=== PATIENT | male | born 1950 | race Caucasian/White ===

== ENCOUNTER 2016-07-19 08:32 | Outpatient (CLI) | payer MEDICARE, MEDICAID | END 2016-07-19 08:33 | disposition critical access hospital (66) | DX: I46.9 Cardiac arrest, cause unspecified (principal) | CPT/HCPCS: A0425; A0433 ==

== ENCOUNTER 2016-07-19 08:35 | Emergency (ER) | payer MEDICARE, MEDICAID ==
[2016-07-19] MEDS ORDERED: AMIODARONE 150 MG/3 ML VIAL IV ONE (10:00)
[2016-07-19] MEDS ORDERED: EPINEPHrine ABBOJECT 1 MG/10 ML SYRINGE IVP ONE (10:00)
[2016-07-19] MEDS ORDERED: SODIUM BICARBONATE ABBOJECT 50 MEQ/50 ML SYRINGE IVP ONE (10:00)
== END 2016-07-19 11:01 | disposition expired ==
DX: I46.9 Cardiac arrest, cause unspecified (principal); I49.01 Ventricular fibrillation; I25.10 Atherosclerotic heart disease of native coronary artery without angina pectoris; Z95.1 Presence of aortocoronary bypass graft
CPT/HCPCS: 92950; 99282; 99283; J0282